=== PATIENT | male | born 1960 | race Caucasian/White ===

== ENCOUNTER 2017-06-30 11:44 | Emergency (ER) | payer MEDICARE ==
--- NOTE | ~2017-06-30 | CR20 ---
[facility]. [facility] A Service of [facility] RADIOLOGY TEXT RESULTS PATIENT: TEJAL MCKEON LOCATION: SED : 64 UNIT #: [id number] AGE: [address]: MALATHI GUY SEX: M ORDER DR: [id number] [place] [address] [id number] E MR#: [id number] #: [id number] NAME: TEJAL MCKEON : 1960 SEX: M STUDY DATE/TIME: 06/30/2017 12:54 UNIT: SED ROOM: STUDY DESCRIPTION: CR Ankle Min 3 Views Lt Ordering Physician: [facility] Primary Care Physician: Chandra Begum M.D. MEDICAL IMAGING REPORT This report is preliminary unless electronic signature is present. EXAM Left ankle series 06/30/2017 HISTORY Redness. No known injury. Swelling and redness medial and lateral. TECHNIQUE AP, lateral and oblique radiographs of the left ankle are presented. COMPARISON STUDIES None. FINDINGS No fracture or malalignment. Ankle mortise joint intact. No bony destructive process is seen. Skin thickening and underlying fat stranding and haziness in the distal foreleg and ankle region with soft tissue swelling circumferentially at the ankle. No soft tissue defect, subcutaneous air, or radiopaque foreign body. Correlate with any clinical etiology for edema or inflammation. Subcutaneous calcifications along the posterior forelegs. Dictated by... Billy Harris M.D. THIS IS AN ELECTRONICALLY VERIFIED REPORT Billy Harris M.D. at 07/03/2017 5:45 PM JSK/pcl TD: 06/30/2017 21:09 [facility] A Service [facility] RADIOLOGY TEXT RESULTS PATIENT: TEJAL MCKEON LOCATION: SED : 64 UNIT #: [id number] AGE: [address]: MALATHI GUY SEX: M ORDER DR: NORBERTO #: [id number] MEDICAL IMAGING REPORT Page 1 of 1
[~2017-06-30 11:44] MED LIST: AMITRYPTYLINE; CLINDAMYCIN HC300 MG PO; FLEXERIL10 MG PO; LAMICTAL; LAMICTAL PO; LORTAB 5/500 TA1 TA1 PO; MOBIC PO; NO MEDICATIONS; TYLENOL #3 PO; TYLOX 5/500 CAP1 CAP PO; VICODIN ES 7.51 EAC1 PO
[2017-06-30 13:14] LABS: BASOPHIL# 0.1 X10e3 (0-0.3); BASOPHIL% 0.7 % (0-2.5); EOSINOPHIL# 0.1 X10e3 (0-0.7); EOSINOPHIL% 1.4 % (0.0-7.0); HEMATOCRIT 40.3 % (38.0-50.0); HEMOGLOBIN 13.9 gm/dL (13.0-16.0); LYMPHOCYTE# 1.2 X10e3 (1.0-3.5); LYMPHOCYTE% 15.3 % (17.0-45.0); MEAN CELL VOLUME 89.6 FL (83-96); MEAN CORPUSCULAR HEMOGLOBIN 30.9 PG (28-34); MEAN CORPUSCULAR HGB CONC 34.5 g/dL (30-36); MEAN PLATELET VOLUME 7.2 FL (6.5-11.5); MONOCYTE% 13.1 % (3.0-12.0); NEUTROPHIL# 5.3 X10e3 (1.5-7.1); NEUTROPHIL% 69.5 % (40-75); PLATELET COUNT 283 X10e3 (140-420); RED CELL DISTRIBUTION WIDTH 13.4 % (11.0-15.5); WHITE BLOOD COUNT 7.6 X10e3 (4.0-10.5)
[2017-06-30 13:15] LABS: DIFF IND NO
[2017-06-30 13:44] LABS: ALBUMIN SERUM 3.9 g/dL (3.5-5.0); ALKALINE PHOSPHATASE 93 U/L (32-92); ALT (SGPT) 16 U/L (10-40); AST (SGOT) 18 U/L (10-42); BILIRUBIN,TOTAL 0.4 mg/dL (0.2-2.0); BLOOD UREA NITROGEN 11 mg/dL (9-23); BUN/CREATININE RATIO 12.22; CALCIUM SERUM 8.9 mg/dL (8.4-10.2); CARBON DIOXIDE 27 mmol/L (22-31); CHLORIDE 100 mmol/L (100-111); CREATININE SERUM 0.9 mg/dL (0.6-1.4); GLOM FILT RATE Estimated 96.5 mL/min (>60); GLUCOSE FASTING 130 mg/dL (70-110); POTASSIUM 3.5 mmol/L (3.5-5.1); PROTEIN TOTAL SERUM 7.1 g/dL (6.0-8.3); SODIUM 131 mmol/L (135-145); URIC ACID 4.7 mg/dL (2.6-7.2)
[2017-06-30 13:56] LABS: BILIRUBIN, DIRECT <0.1 mg/dL (0.0-0.2); BILIRUBIN,INDIRECT 0.3 mg/dL (0.0-0.9)
== END 2017-06-30 15:10 | disposition home or self-care (01) ==
LOC: SED 11:44
PROVIDERS: Physician Assistant
DX: L03.116 Cellulitis of left lower limb (principal); R03.0 Elevated blood-pressure reading, without diagnosis of hypertension; F17.200 Nicotine dependence, unspecified, uncomplicated; Z88.0 Allergy status to penicillin
CPT/HCPCS: 36415; 73610; 80048; 80076; 84550; 85025; 85651; 96374; 99283; J1885